=== PATIENT | female | born 1940 | race Caucasian/White ===

== ENCOUNTER 2017-09-28 03:56 | Outpatient (CLI) | payer MEDICARE ==
[~2017-09-28 03:56] MED LIST: CALC-212 PO; CLOP75TA35 PO; DEXL60CA3 PO; HYDR200T84 PO; LEVO50TA67 PO; OMEG500C3 PO; SIMV20TA5 PO; TRAZ-143 PO
== END 2017-09-28 23:59 | disposition home or self-care (01) ==
LOC: DIABETIC 03:56
PROVIDERS: ATTEND Internal Medicine
DX: E11.9 Type 2 diabetes mellitus without complications (principal); J45.909 Unspecified asthma, uncomplicated; Z90.710 Acquired absence of both cervix and uterus; Z85.3 Personal history of malignant neoplasm of breast; Z98.890 Other specified postprocedural states
CPT/HCPCS: G0108

== ENCOUNTER 2020-07-14 09:15 | Day surgery (SDC) | payer MEDICARE ==
[2020-07-14] VITALS (8 sets, daily range): BP systolic 108–153; BP diastolic 54–97
[~2020-07-14] VITALS: Ht 157.5 cm; Wt 65.0 kg
[~2020-07-14 09:15] MED LIST changes: +SIMV-42 PO; -SIMV20TA5 PO; -TRAZ-143 PO; +TRAZ-251 PO
[2020-07-14] MEDS ORDERED: FERR325T28 PO (10:26)
[2020-07-14] MEDS ORDERED: FLO0.4C PO (10:26)
[2020-07-14] MEDS ORDERED: LOSA50TA64 PO (10:26)
[2020-07-14] MEDS ORDERED: METO-539 PO (10:26)
[2020-07-14] MEDS ORDERED: LEVO75TA PO (10:26)
[2020-07-14 12:45] LABS: TOTAL PROTEIN 7.8 G/DL (6.4-8.2)
== END 2020-07-14 15:19 | disposition home or self-care (01) ==
LOC: SSTAY O 09:15
PROVIDERS: ATTEND Psychiatry & Neurology Neurology
DX: G04.90 Encephalitis and encephalomyelitis, unspecified (principal); Z85.3 Personal history of malignant neoplasm of breast; Z90.710 Acquired absence of both cervix and uterus; Z98.890 Other specified postprocedural states; Z98.1 Arthrodesis status; Z72.89 Other problems related to lifestyle; Z79.899 Other long term (current) drug therapy; Z79.01 Long term (current) use of anticoagulants; Z90.10 Acquired absence of unspecified breast and nipple
CPT/HCPCS: 36415; 62328; 77003; 82947; 83615; 84155; 86592; 87015; 87070; 87075; 87102

== ENCOUNTER 2021-04-24 10:47 | Emergency (ER) | payer MEDICARE ==
[~2021-04-24] VITALS: Ht 157.5 cm; Wt 57.3 kg
[~2021-04-24 10:47] MED LIST changes: -CALC-212 PO; +CLOP75TA34 PO; -CLOP75TA35 PO; -DEXL60CA3 PO; +FERR325T28 PO; +FLO0.4C PO; -LEVO50TA67 PO; +LEVO75TA PO; +LOSA50TA64 PO; +METO-539 PO; -OMEG500C3 PO; -TRAZ-251 PO
--- NOTE | 2021-04-24 15:57 | NUR ---
THERE ARE NO ROOMS AVAILABLE IN THE ER, PT WAS SEEN, EVALUATED AND ASSESSED BY DR FONTENOT, PLAN TO DC HOME, PT IS COMFORTABLE WITH PLAN, AMB WITH STEADY GAIT TO REGISTRATION
[2021-04-24 15:58] VITALS: BP 189/96
--- NOTE | 2021-04-24 16:25 | NUR ---
PT LEFT WITHOUT DC PAPERS
== END 2021-04-24 16:28 | disposition home or self-care (01) ==
LOC: ER 10:48
DX: Z02.89 Encounter for other administrative examinations (principal); E87.1 Hypo-osmolality and hyponatremia; M19.90 Unspecified osteoarthritis, unspecified site; Z85.3 Personal history of malignant neoplasm of breast; Z90.710 Acquired absence of both cervix and uterus; Z98.890 Other specified postprocedural states; Z79.899 Other long term (current) drug therapy
CPT/HCPCS: 99281

== ENCOUNTER 2025-02-28 08:18 | Outpatient (CLI) | payer MEDICARE ==
[~2025-02-28] VITALS: Ht 154.9 cm; Wt 49.9 kg
[~2025-02-28 08:18] MED LIST changes: -FLO0.4C PO; +HYDR200T73 PO; -HYDR200T84 PO; +TAMS-55 PO
[2025-02-28] MEDS: albuterol 2.5 MG/3 ML nebule NEB ONE (08:55)
[2025-02-28 10:24] VITALS: PULSE 86; RESP 16; O2SAT 98
--- NOTE | 2025-02-28 13:42 | PROCEDURE NOTE - Respiratory ---
Procedure Note-Respiratory Providers to Copies To 1: SIRENA PERRY MD Procedure Name: This is a complete pulmonary function study dated February 28, 2025. Spirometry measurements: Both the forced vital capacity and FEV1 measurements are normal. The FEV1 ratio is elevated. The flow rate measurements are normal or even better than normal. Bronchodilator was not administered as part of the study. Lung volume measurements: The total lung capacity and functional residual capacity measurements are in the lower range of normal. The residual volume measurement is somewhat reduced. These findings suggest a mild tendency towards a restrictive ventilatory defect. Lung diffusion measurement: The DLCO measurement is normal. Airway resistance measurement: The airway resistance measurement is normal. Conclusion: The majority of this data is within normal limits. The lung volume measurements suggest a very mild tendency towards a restrictive ventilatory defect. This would be consistent with the patient's history of interstitial lung disease, although the abnormality appears to be quite mild. The forced vital capacity remains well within the normal range. The lung diffusion measure ment is in the normal range. We have no previous studies for comparison. Clinical correlation is suggested. DEDRA GUAJARDO MD Feb 28, 2025 13:42
== END 2025-02-28 23:59 | disposition home or self-care (01) ==
LOC: RT 08:18
PROVIDERS: ATTEND Internal Medicine
DX: J84.9 Interstitial pulmonary disease, unspecified (principal); R06.02 Shortness of breath
CPT/HCPCS: 94010; 94727; 94729; 94760